=== PATIENT | male | born 1930 | race Caucasian/White ===

== ENCOUNTER 2016-09-15 12:45 | Emergency (ER) | payer OTHER, BC ==
[2016-09-15 13:03] VITALS: BP 153/92; PULSE 57; TEMP 98.1; BMI 28.1
--- NOTE | 2016-09-15 13:25 | PDOC ---
History of Present Illness - General Chief Complaint: Injury Stated Complaint: INJURY TO LEG Time Seen by Provider: 09/15/16 13:18 History Source: Patient Exam Limitations: No Limitations - History of Present Illness Initial Comments: 09/15/16 13:57 86 yr male with lac to left lower leg on a piece of gym equipment today. [facility]. Occurred: reports: just prior to arrival Severity: reports: mild Pain Location: reports: lower extremity Past History - Past Medical History Allergies/Adverse Reactions: Allergies Allergy/AdvReac Type Severity Reaction Status Date / Time No Known Allergies Allergy Verified 09/15/16 13:06 Home Medications: Ambulatory Orders Aspirin [ASA -] 81 mg PO DAILY 04/21/15 Atorvastatin Ca [Lipitor] 20 mg PO HS 04/21/15 Metformin HCl 500 mg PO QID 04/21/15 Metoprolol Succinate [Toprol XL -] 12.5 mg PO DAILY 04/21/15 Spironolact/Hydrochlorothiazid [Spironolactone-Hctz 25-25 Tab] 12.5 mg PO DAILY 04/21/15 Diabetes: Yes HTN: Yes Hypercholesterolemia: Yes Other medical history: pvd - Psycho/Social/Smoking Cessation Hx Anxiety: No Suicidal Ideation: No Smoking History: Never smoked Have you smoked in the past 12 months: Yes Number of Cigarettes Smoked Daily: 9 Information on smoking cessation initiated: Yes 'Breaking Loose' booklet given: 09/15/16 Hx Alcohol Use: No Drug/Substance Use Hx: No Substance Use Type: None Review of Systems - Review of Systems Able to Perform ROS?: Yes Is the patient limited [place] proficient: No Constitutional: No: Symptoms Reported HEENTM: No: Symptoms Reported Respiratory: No: Symptoms reported Cardiac (ROS): No: Symptoms Reported ABD/GI: No: Symptoms Reported : No: Symptoms Reported Musculoskeletal: No: Symptoms Reported Integumentary: Yes: See HPI *Physical Exam - Vital Signs Last Vital Signs Temp Pulse Resp BP Pulse Ox 98.1 F 57 L 18 153/92 100 09/15/16 13:00 09/15/16 13:00 09/15/16 13:00 09/15/16 13:00 09/15/16 13:00 - Physical Exam General Appearance: Yes: Nourished, Appropriately Dressed HEENT: positive: EOMI, ORAL Vascular Pulses: Doralis-Pedis (L): 1+ (history of weak pulses/pvd) Musculoskeletal: positive: Normal Inspection Extremity: positive: Other (left lower leg with skin tear laceration approximately 5 inches long involving fatty sub q tissue ) 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 NML intact, Fully Oriented, Alert, Normal Mood/ Affect Procedures - Laceration/Wound Repair Left Lower Medial Leg Wound Length: 12.6 to 20 cm Wound's Depth, Shape: linear, flap Wound Repaired With: Steri-strips, Dermabond Sterile Dressing Applied: Yes Medical Decision Making - Medical Decision Making 09/15/16 13:59 cc: skin tear left lower leg steri strips and dermabond glue placed edges are wide, sterile dressing placed tetanus booster given pt and his understand the dc plan and inst pt has good follow up *DC/Admit/Observation/Transfer Diagnosis at time of Disposition: Skin tear - Patient Instructions Printed Discharge Instructions: DI for Laceration Repair Steri-Strips Additional Instructions: keep dry remove the dressing in 24hrs and then re-apply a telfa non stick dressing with some paper tape keep the leg elevated you can apply a cool compress to the area for 15 minutes if any bleeding occurs follow with your doctor in 3-4 days for a wound check any worsening symptoms return to the ER
[2016-09-15] MEDS ORDERED: DIPHTH,PERTUSS(ACELL),TET 0.5 ML DISP.SYRIN IM ONE (13:57)
== END 2016-09-15 14:16 | disposition home or self-care (01) ==
LOC: JERFT 12:45
PROC: 0HQLXZZ Repair Left Lower Leg Skin, External Approach (ICD-10-PCS; principal; 2016-09-15)
DX: S81.812A Laceration without foreign body, left lower leg, initial encounter (principal); W21.9XXA Striking against or struck by unspecified sports equipment, initial encounter; Y93.89 Activity, other specified; Y92.39 Other specified sports and athletic area as the place of occurrence of the external cause; E11.9 Type 2 diabetes mellitus without complications; I10 Essential (primary) hypertension; E78.00 Pure hypercholesterolemia, unspecified
CPT/HCPCS: 12005; 90715; 99281-25